=== PATIENT | male | born 1965 | race Caucasian/White ===

== ENCOUNTER 2017-04-11 05:39 | Inpatient (IN) ==
[2017-04-04 11:08] LABS: MANUAL DIFF NEEDED? NO; URINE MICRO REVIEW NEEDED? NO; URINE SOURCE CLEAN CATCH
[2017-04-04 11:12] LABS: BASO% 0.7 % (0.0-0.8); EOS# 0.17 X1000 (0.0-0.7); EOS% 2.5 % (0.0-10.0); HEMATOCRIT 41.5 % (42.0-52.0); HEMOGLOBIN 14.7 g/dL (14.0-18.0); IMM GRAN# 0.02 X1000 (0.0-0.04); IMM GRAN% 0.3 % (0.0-0.5); LYMPH# 2.36 X1000 (1.2-3.4); LYMPH% 34.7 % (20.5-51.1); MCH 31.1 PG (27-31); MCHC 35.4 g/dL (33-37); MCV 87.9 FL (81-99); MONO# 0.47 X1000 (0.11-0.59); MONO% 6.9 % (1.7-9.3); MPV 9.7 FL (7.4-10.4); NEUT% 54.9 % (42.2-75.2); PLT 306 X1000 (130-400); RBC 4.72 XMIL (4.7-6.1)
[2017-04-04 11:13] LABS: BILIRUBIN URINE NEGATIVE (NEGATIVE); BLOOD URINE NEGATIVE (NEGATIVE); COLOR YELLOW; GLUCOSE URINE NEGATIVE (NEGATIVE); LEUKOCYTES URINE NEGATIVE (NEGATIVE); NITRITE URINE NEGATIVE (NEGATIVE); PH URINE 6.5; PROTEIN URINE NEGATIVE (NEGATIVE); SP GRAVITY URINE 1.019; TURBIDITY URINE CLEAR (CLEAR); UR EPITHELIAL CELLS <10 /HPF (<10); URINE BACTERIA NEGATIVE /HPF; URINE RBC <10 /HPF (<10); URINE WBC <10 /HPF (<10); UROBILINOGEN URINE NORMAL (NORMAL)
[2017-04-04 11:22] LABS: PROTIME 10.5 Seconds (9.2-11.7); PTT 27.3 Seconds (22.0-36.0)
--- NOTE | 2017-04-04 11:28 | EKG Report ---
Test Performed on : 04/04/2017 10:25:49 AM Test Reason : PAT Blood Pressure : / mmHG Vent. Rate : 062 BPM Atrial Rate : 062 BPM P-R Int : 150 ms QRS Dur : 082 ms QT Int : 400 ms P-R-T Axes : 027 069 035 degrees QTc Int : 406 ms Normal sinus rhythm. Normal ECG No previous ECGs available Confirmed by Nia Hernandez MD ([id number]) on 04/05/2017 9:06:44 AM
[2017-04-04 11:45] LABS: AGAP 12; BUN 13 mg/dL (8-22); CALCIUM 9.4 mg/dL (8.8-10.2); CHLORIDE 102 mmol/L (98-107); COSMO 282; POTASSIUM 4.7 mmol/L (3.5-5.1); SODIUM 141 mmol/L (136-145); TCO2 27 mmol/L (25-35)
[2017-04-11] MEDS ORDERED: PEPCID ONE (08:27)
[2017-04-11] MEDS ORDERED: LR 1,000 ML ONE (08:27)
[2017-04-11] MEDS ORDERED: KEFZOL 2 GM/D5W 2 GM/50 ML IVPB ONE (08:27)
[2017-04-11] MEDS ORDERED: CELEBREX ONE (08:27)
[2017-04-11] MEDS ORDERED: REGLAN ONE (08:27)
[2017-04-11] MEDS ORDERED: LYRICA ONE (08:27)
[2017-04-11] MEDS ORDERED: COLACE ONE (08:28)
[2017-04-11] MEDS ORDERED: DIPRIVAN 1% 500 MG/50 ML BOTTLE ONE (10:04)
[2017-04-11] MEDS ORDERED: SENSORCAINE 0.25%/EPI 1:200,000 ONE (10:08)
[2017-04-11] MEDS ORDERED: SODIUM CHLORIDE 0.9% ONE (10:08)
[2017-04-11] MEDS ORDERED: TORADOL ONE (10:08)
[2017-04-11] MEDS ORDERED: CYKLOKAPRON 1,000 MG/NS 1,000 MG/100 ML IVPB ONE (10:08)
[2017-04-11] MEDS ORDERED: DURAMORPH ONE (10:08)
[2017-04-11] MEDS ORDERED: EXPAREL 1.3% ONE (10:09)
[2017-04-11] MEDS ORDERED: NEOSPORIN G.U. IRRIGANT ONE (10:09)
[2017-04-11] MEDS ORDERED: VERSED ONE ×2 (10:12→13:23)
[2017-04-11] MEDS ORDERED: FENTANYL ONE (10:12)
[2017-04-11] MEDS ORDERED: DECADRON ONE (11:42)
[2017-04-11] MEDS ORDERED: OFIRMEV 1000 MG/ISOTONIC SOLN 1,000 MG/100 ML BOTTLE ONE (11:42)
[2017-04-11] MEDS ORDERED: ZOFRAN ONE (11:42)
[2017-04-11] MEDS ORDERED: NEO-SYNEPHRINE ONE (12:05)
[2017-04-11] MEDS ORDERED: ROBINUL ONE ×2 (12:26→12:54)
[2017-04-11] MEDS ORDERED: NS 1,000 ML ONE (14:18)
[2017-04-11 14:49] LABS: URINE SOURCE CATH
[2017-04-11 14:59] LABS: URINE MICRO REVIEW NEEDED? NO
[2017-04-11 15:04] LABS: BILIRUBIN URINE NEGATIVE (NEGATIVE); BLOOD URINE NEGATIVE (NEGATIVE); COLOR YELLOW; GLUCOSE URINE NEGATIVE (NEGATIVE); LEUKOCYTES URINE NEGATIVE (NEGATIVE); NITRITE URINE NEGATIVE (NEGATIVE); PROTEIN URINE NEGATIVE (NEGATIVE); SP GRAVITY URINE 1.022; TURBIDITY URINE CLEAR (CLEAR); UR EPITHELIAL CELLS <10 /HPF (<10); URINE BACTERIA NEGATIVE /HPF; URINE RBC <10 /HPF (<10); URINE WBC <10 /HPF (<10); UROBILINOGEN URINE NORMAL (NORMAL)
[2017-04-11] MEDS ORDERED: AMBIEN PO PRN (15:15)
[2017-04-11] MEDS ORDERED: MORPHINE IV PRN (15:15)
[2017-04-11] MEDS ORDERED: MILK OF MAGNESIA PO PRN (15:15)
[2017-04-11] MEDS ORDERED: ZOFRAN IV PRN (15:15)
[2017-04-11] MEDS: ULTRAM PO SCH (16:46)
[2017-04-11] MEDS: NS 1,000 ML IV SCH (16:47)
[2017-04-11] MEDS: PERIDEX MT SCH ×2 (16:47→20:01)
[2017-04-11] MEDS ORDERED: CYKLOKAPRON 1,000 MG in NS 100 ML IV ONE (17:10)
[2017-04-11] MEDS: TYLENOL PO SCH (19:01)
[2017-04-11] MEDS: CELEBREX PO SCH (20:01)
[2017-04-11] MEDS: LYRICA PO SCH (20:01)
[2017-04-11] MEDS: KEFZOL 2 GM/D5W 2 GM/50 ML IVPB IV SCH (20:02)
[2017-04-11] MEDS: COLACE PO SCH (20:02)
[2017-04-11] MEDS: OXY IR PO PRN (22:40)
--- NOTE | 2017-04-12 03:07 | OPERATIVE NOTE ---
PROCEDURE DATE: 04/11/2017 PREOPERATIVE DIAGNOSIS: Left hip degenerative joint disease. POSTOPERATIVE DIAGNOSIS: Left hip degenerative joint disease. PROCEDURE PERFORMED: Left anterior total hip arthroplasty using a [facility] size 8 femoral stem, a +0, 36 mm head, and a 54 mm hemispherical shell with a 36 mm inside diameter liner. ANESTHESIA: Spinal. SURGEON: David Hernandez MD. ASSISTANTS: Venus Badillo PA-C, who was present throughout the case and assisted with bone preoperation, implanting of the orthopedic devices, and wound closure. Head Of Music was critical to the case. Second program services assistant was Vazquez Basilio RN. COMPLICATIONS: None. BLOOD LOSS: Minimal. DRAINS: Hemovac x1. DESCRIPTION OF PROCEDURE: The patient was brought to the operative suite and placed in the supine position. After successful administration of spinal anesthesia, patient was placed on the OSI table in the usual position for left hip. The left hip was then prepped and draped in the usual sterile fashion. A longitudinal incision was made beginning 2 cm distal and 2 cm lateral to the anterior-superior iliac spine, extended distally and slightly laterally 8 cm. This was dissected sharply through the skin down to the tensor fascia. The tensor fascia was incised and dissected bluntly down to the deep tensor fascia. The deep tensor fascia was incised. The circumflex vessels were electrocauterized, exposing the anterior capsule. A T-capsulotomy was performed, exposing the femoral neck. A femoral neck cut was made with an oscillating saw. Femoral head was removed with a power corkscrew. The labrum was resected. The acetabulum was serially reamed to a 54 to accept a 54 cup. The 54 cup was then driven into place in the proper amount inclination and anteversion. Once this verified to be in good position, the liner was locked onto the shell. Attention was then directed to the femur. The femur was externally rotated, extended, adducted, and elevated out of the wound with the hook on the OSI bed. The lateral neck was rongeured. The canal was serially broached to a size 8. A size 8, 0 neck length trial was found to be excellent to offset the leg length, and fit and fill of the stem. The trial was removed. Definitive stem was locked onto the femur and then the ceramic head was locked onto the Goodman taper. The hip was again reduced. It was again shown to be in excellent position. The hip was copiously irrigated and dried. The hip was copiously infiltrated with Exparel including the posterior capsule, anterior capsule, anterior musculature, and subcutaneous tissue. The anterior capsule was repaired with a running 0 V-Loc suture. The drain was placed deep to the tensor fascia, buried around the stem neck. Then the tensor fascia was closed with running 0 V-Loc suture. The skin edge was approximated with 2-0 Vicryl and 4-0 Monocryl, and Prineo, and then a sterile dressing was applied. The patient tolerated the procedure well without complication. At the end the procedure, all counts were correct. The patient was transferred to the recovery room in stable condition. cc: David Hernandez MD
[2017-04-12] MEDS: NS 1,000 ML IV SCH (04:00)
[2017-04-12] MEDS: KEFZOL 2 GM/D5W 2 GM/50 ML IVPB IV SCH (04:45)
[2017-04-12] MEDS: OXY IR PO PRN (04:45)
[2017-04-12] MEDS ORDERED: XARELTO PO SCH (06:00)
[2017-04-12 06:08] LABS: HEMATOCRIT 32.3 % (42.0-52.0); HEMOGLOBIN 11.1 g/dL (14.0-18.0)
[2017-04-12 06:14] LABS: AGAP 9; BUN 16 mg/dL (8-22); CALCIUM 8.5 mg/dL (8.8-10.2); CHLORIDE 104 mmol/L (98-107); COSMO 283; POTASSIUM 4.5 mmol/L (3.5-5.1); SODIUM 140 mmol/L (136-145); TCO2 27 mmol/L (25-35)
[2017-04-12] MEDS: TYLENOL PO SCH ×3 (06:35→12:22)
[2017-04-12] MEDS: ULTRAM PO SCH ×3 (06:36→12:22)
[2017-04-12] MEDS ORDERED: DECADRON IV ONE (09:00)
[2017-04-12] MEDS ORDERED: PEPCID PO SCH (09:00)
[2017-04-12] MEDS: CELEBREX PO SCH (09:18)
[2017-04-12] MEDS: COLACE PO SCH (09:19)
[2017-04-12] MEDS: LYRICA PO SCH (09:19)
[2017-04-12] MEDS: PERIDEX MT SCH (09:20)
[2017-04-12 13:20] VITALS: BP 137/68
--- NOTE | 2017-04-13 08:13 | DISCHARGE SUMMARY ---
ADMISSION DATE: 04/11/2017 DISCHARGE DATE: 04/12/2017 DISCHARGE DIAGNOSIS: Left hip degenerative joint disease, status post left total hip arthroplasty. DISCHARGE MEDICATIONS: See discharge medication list. DISPOSITION: The patient is discharged home with home health. DISCHARGE INSTRUCTIONS: Instructions for total hip arthroplasty protocol and instructed to return to see Dr. Hernandez next . HOSPITAL COURSE: On the day of admission, the patient underwent a left total hip arthroplasty. His postoperative course was unremarkable. At discharge, he is afebrile. Tolerating a regular diet and ambulating well with physical therapy. Yesterday, he walked 100 feet. His wound is clean, dry, and intact without sign of infection. His calf is soft. His hemoglobin is 11.1 and his hematocrit is 32.3. He had 40 mL of drainage from his Hemovac. He is discharged home with home health in stable condition with instructions to follow up as described above. Dictated by YANNICK Tolliver for David Hernandez MD cc: YANNICK Tolliver MD
== END 2017-04-12 15:31 | disposition home health service (06) ==
LOC: SURHOLD 05:39 → 4N 11:01
PROVIDERS: ADMIT Orthopaedic Surgery; ATTEND Orthopaedic Surgery